=== PATIENT | female | born 1960 | race Caucasian/White ===

== ENCOUNTER → 2016-11-27 | Outpatient (CLI) | payer OTHER ==
[~2016-11-27] VITALS: Ht 165.1 cm; Wt 107.2 kg
[~2016-11-27] MED LIST: AMITRIPTYLINE H25 M2 PO; CLONAZEPAM 1 MG1 M1 PO; FISH OIL 1,001000 M2 PO; FLEXERIL PO; FLUOXETINE HCL40 MG PO; HYDROCODONE-AP1 EAC6 PO; IRON325 PO; METHADONE HCL 110 M1 PO; METHADONE HCL5 MG PO; MOBIC15 MG PO; MORPHINE SULFAT15 M3 PO; MS CONTIN15 MG PO; NEURONTIN 300300 M1 PO; NORFLEX100 MG PO; PERCOCET 10-321 EAC1 PO; PERCOCET 10-321 EACH PO; PERCOCET 7.5-31 EACH PO; PREDNISONE 10 M10 MG PO; PROZAC20 MG PO; TRAMADOL 50 MG50 MG PO; VITAMIN D2000 UNIT PO; WELLBUTRIN XL300 MG PO
--- NOTE | ~2016-11-27 | HPC ---
[facility] [place] [address] [address] [place] [address] PAIN MANAGEMENT CONSULTATION Name: CORTES LEMON Room #: REG [facility]#: [id number] Admission: 11/27/16 Attend Phys: Awilda Lemon MD Discharge: Date of : 56 Report #: [id number] THIS REPORT FOR: //name// CC: [facility] physician/PCP Awilda Victor MD DATE OF SERVICE: 11/27/2016 FOLLOWUP COMPLAINT: Things are going pretty well and I am going to have my other knee done in few weeks. FOLLOWUP HISTORY: The patient is a 56-year-old female who has been followed in the pain clinic because of chronic knee pain with [id number] discomfort. She has undergone a left total knee replacement. This was in August. Since that time, she has increased her straight and activity level. She is scheduled to undergo a right total knee replacement on 12/17/2016. She feels that her life is improving. She has been experiencing less depression as a result of that. She finds that the Percocet medications 10 mg 1 p.o. t.i.d. is quite helpful in her rehab. She would like to have her medications renewed. She is taking the medications as prescribed. She has not had any problems with them. They are not causing any problems with her medication. PHYSICAL EXAMINATION: Blood pressure 111/53, pulse 82, respiratory rate 16, room air saturation is 98%. The patient's height 165 cm, weight 107 kilograms. BMI is 39.3. She has not fallen since we saw her last. She is gaining strength in her left leg and is doing well. IMPRESSION: Chronic knee pain status post left knee replacement in August- -- doing well in her rehab with use of opioid medications. The patient to undergo second knee replacement on the right in December. RECOMMENDATIONS: We will continue with her opioid medications. She finds that she is able to engage in activities of daily living. She will be limited by without the use of these medications. She is not having any problems with mentation. No oversedation. She is taking the medications as prescribed. She will follow up in the future as needed. We would like to thank you for letting us participate in her care. We hope she continues to improve. <ELECTRONICALLY SIGNED> By: Awilda Lemon MD 12/08/16 [id number] Awilda Lemon MD /nt
[2016-11-27 09:40] VITALS: BP 111/53
== END | disposition home or self-care (01) ==
LOC: PAIN 06:51
DX: M25.562 Pain in left knee (principal); F32.9 Major depressive disorder, single episode, unspecified

== ENCOUNTER → 2017-01-15 | Outpatient (CLI) | payer OTHER ==
[~2017-01-15] VITALS: Ht 165.1 cm; Wt 105.0 kg
--- NOTE | ~2017-01-15 | HPC ---
[facility] [place] [address] PAIN MANAGEMENT CONSULTATION Name: CORTES LEMON Room #: REG [facility]#: [id number] Admission: 01/15/17 Attend Phys: Awilda Lemon MD Discharge: Date of : 56 Report #: [id number] THIS REPORT FOR: //name// CC: [facility] physician/PCP Awilda Victor MD DATE OF SERVICE: 01/15/2017 FOLLOWUP COMPLAINT: 'Things are going better, but I am having return of sciatic nerve pain." FOLLOWUP HISTORY: The patient is a 56-year-old female who has been seen in the pain clinic because of bilateral knee pain. She is now status post bilateral knee replacement. She overall feels that her pain has improved. She is continuing her exercises. She feels that the opioid medications continue to make her rehabilitation more tolerable. She continues to increase her level of activity. She has noticed that she is experiencing pain and discomfort in the lower portion of her back with pain radiating down into her leg. She has had lumbar radiculopathy in the past and feels that she may have noted a return of it. She will continue with her physical therapy as well as stretching exercises and will return to the pain clinic in the future if needed for an epidural steroid injection. PHYSICAL EXAMINATION: Blood pressure 119/65, pulse 81, respiratory rate 16, room air saturation is 98%, height 165 cm, weight 105 kg, and BMI 38.5. IMPRESSION: 1. Improved degenerative joint disease in her knees, status post total knee replacement, left and right. 2. Return of lumbar radiculopathy. She has had this in the past and noticed that since her activities have increased, she has been experiencing lumbar radicular pain. She will consider in the next few weeks if her pain does not improve whether or not to undergo an epidural steroid injection. She has had these in the past and they have been beneficial. RECOMMENDATIONS: A script for Percocet one p.o. t.i.d. has been rewritten. She will call us if she has any problems with her medications. She will return to the pain clinic for additional treatment in the future as needed. We would like to thank you for letting us participate in her care. We hope she continues to improve. By: [id number] Awilda Lemon MD /spencer
== END | disposition home or self-care (01) ==
LOC: PAIN 01-08 06:08
DX: M54.16 Radiculopathy, lumbar region (principal); G89.29 Other chronic pain; M17.0 Bilateral primary osteoarthritis of knee; Z96.653 Presence of artificial knee joint, bilateral